=== PATIENT | male | born 1940 | race Caucasian/White ===

== ENCOUNTER 2016-10-31 07:34 | Outpatient (CLI) | payer MEDICARE, OTHER ==
[2016-10-31 08:08] LABS: APPEARANCE,URINE Clear (CLEAR); COLOR,URINE Yellow (YELLOW); OCCULT BLOOD,URINE Negative (NEGATIVE); PH URINE 8.5 (5.0 - 8.0); UROBILINOGEN URINE 0.2 Eu (0.2-1.0)
[2016-10-31 08:17] LABS: AMORPHOUS SEDIMENT,UR FEW (NEGATIVE)
[2016-10-31 08:27] LABS: BASOPHILS % 1.1 (0.0-1.5); EOSINOPHILS % 7.1 % (0.0-6.8); MEAN CORPUSCULAR VOLUME 89.6 fl (80.0-100.0); MONOCYTES % 5.2 % (0.0-11.0); NEUTROPHILS # 3.5 # k/uL (1.4-7.7)
[2016-10-31 08:55] LABS: eGFR (African) 54; eGFR (Non-African) 45
== END 2016-10-31 07:44 ==
LOC: LAB 07:34
PROVIDERS: ATTEND Internal Medicine
DX: Z00.00 Encounter for general adult medical examination without abnormal findings (principal); Z12.5 Encounter for screening for malignant neoplasm of prostate
CPT/HCPCS: 36415; 80053; 80061; 81002; 84153; 85025

== ENCOUNTER 2017-11-12 08:12 | Outpatient (CLI) | payer MEDICARE, OTHER ==
[2017-11-12 09:25] LABS: BASOPHILS % 1.3 (0.0-1.5); EOSINOPHILS % 8.1 % (0.0-6.8); MEAN CORPUSCULAR HEMOGLOBIN 30.6 pg (28.0-34.0); MEAN CORPUSCULAR VOLUME 89.1 fl (80.0-100.0); NEUTROPHILS # 2.8 # k/uL (1.4-7.7)
[2017-11-12 09:38] LABS: eGFR (African) 50; eGFR (Non-African) 42
[2017-11-12 13:34] LABS: APPEARANCE,URINE CLEAR (CLEAR); COLOR,URINE YELLOW (YELLOW); OCCULT BLOOD,URINE NEGATIVE (NEGATIVE); PH URINE 8.5 (5.0 - 8.0); UROBILINOGEN URINE 0.2 Eu (0.2-1.0)
== END 2017-11-12 11:19 ==
LOC: LAB 08:12
PROVIDERS: ATTEND Internal Medicine
DX: Z00.00 Encounter for general adult medical examination without abnormal findings (principal); R30.9 Painful micturition, unspecified; I10 Essential (primary) hypertension
CPT/HCPCS: 36415; 80053; 80061; 81002; 85025

== ENCOUNTER 2018-11-16 08:07 | Outpatient (CLI) | payer MEDICARE, OTHER ==
[2018-11-16 08:50] LABS: BASOPHILS % 0.5 % (0.0-1.5); NEUTROPHILS # 3.5 # k/uL (1.4-7.7)
[2018-11-16 09:04] LABS: HDL 32 mg/dL (>40); eGFR (Non-African) 36
[2018-11-16 09:15] LABS: APPEARANCE,URINE CLEAR (CLEAR); COLOR,URINE YELLOW (YELLOW); OCCULT BLOOD,URINE NEGATIVE (NEGATIVE); PH URINE 5.5 (5.0 - 8.0); UROBILINOGEN URINE 0.2 Eu (0.2-1.0)
== END 2018-11-16 08:10 ==
LOC: LAB 08:07
PROVIDERS: ATTEND Internal Medicine
DX: Z00.00 Encounter for general adult medical examination without abnormal findings (principal); E78.5 Hyperlipidemia, unspecified; R30.9 Painful micturition, unspecified; E55.9 Vitamin D deficiency, unspecified; Z12.5 Encounter for screening for malignant neoplasm of prostate
CPT/HCPCS: 36415; 80053; 80061; 81002; 82306; 84153; 85025